=== PATIENT | male | born 1970 | race Caucasian/White ===

== ENCOUNTER 2017-09-25 20:13 | Inpatient (IN) | payer OTHER ==
[~2017-09-25] VITALS: Ht 15.2 cm; Wt 45.6 kg
[~2017-09-25 20:13] MED LIST: ASPIRIN 81M81 MG/TA2 PO; CIPRO 500MG TA500 MG PO; FLAGYL 250250 MG/TAB PO; LOPRESSOR 225 MG/TAB PO; NO HOME MEDICATIONS; NORVASC 5MG5 MG/TAB PO; ZESTORETIC 12.51 TAB PO
[2017-09-25 21:09] LABS: MEAN CELL VOLUME 102 fl (80.0-100.0); MEAN CORPUSCULAR HGB CONC 33 g/dl (33.0-37.0); MEAN PLATELET VOLUME 9.5 fl (7.4-10.4); PLATELET COUNT 441 K/mm3 (130-400); RED BLOOD COUNT 1.72 M/mm3 (4.20-5.60); REDCELL DISTRIBUTION WIDTH-CV 16.4 % (11.5-14.5)
[2017-09-25 21:19] LABS: COLLECTION METHOD CLEAN CATCH
[2017-09-25 21:21] LABS: HEMATOCRIT 17.5 % (42.0-52.0); HEMOGLOBIN 5.8 g/dl (13.5-18.0); MEAN CORPUSCULAR HEMOGLOBIN 34 pg (27.0-31.0)
[2017-09-25 21:23] LABS: ALANINE AMINOTRANSFERASE 26 U/L (21-72); ALBUMIN 3.4 gm/dL (3.5-5.0); ALCOHOL(ethanol),MEDICAL < 10 mg/dL; ALKALINE PHOSPHATASE 99 U/L (50-136); ANION GAP 14 mmol/L (7-16); AST,SGOT 29 U/L (15-37); BILIRUBIN,TOTAL 0.3 mg/dL (0.0-1.0); BLOOD UREA NITROGEN 31 mg/dL (9-20); C-REACTIVE PROTEIN 0.9 mg/dL (0.0-0.9); CALCIUM 10.5 mg/dL (8.4-10.2); CARBON DIOXIDE 29 mmol/L (22-30); CHLORIDE 91 mmol/L (98-107); CREATININE, serum 1.46 mg/dL (0.66-1.25); GLUCOSE 126 mg/dL (74-106); LIPASE 92 U/L (23-300); POTASSIUM 2.9 mmol/L (3.4-5.0); SODIUM 134 mmol/L (137-145)
[2017-09-25 21:47] LABS: HYALINE CAST >12 /lpf; MUCOUS Present /lpf; PH 5 (5-8); SQUAMOUS EPITHELIAL None Seen /hpf; URINE APPEARANCE Hazy; URINE BACTERIA Rare /hpf; URINE BILIRUBIN Negative (NEGATIVE); URINE BLOOD Negative (NEGATIVE); URINE COLOR Yellow; URINE GLUCOSE Negative (NEGATIVE); URINE KETONE Trace (NEGATIVE); URINE LEUKOCYTE ESTERASE Negative (NEGATIVE); URINE NITRATE Negative (NEGATIVE); URINE PROTEIN(semi-quant) 1+ (NEGATIVE); URINE RBC 0-2 /hpf
[2017-09-25 21:58] LABS: ANISOCYTOSIS 1+; BAND 1 % (0-10); EOSINOPHIL 3 % (0-4); HYPOCHROMIA 3+; LYMPHOCYTE 9 % (20.0-51.0); NEUTROPHILS 84 % (42.0-75.2); PLATELET ESTIMATE INCREASED (NORMAL)
[2017-09-25 22:23] LABS: HEMATOCRIT 15.3 % (42.0-52.0); HEMOGLOBIN 5.3 g/dl (13.5-18.0)
[2017-09-25 22:42] LABS: CALCIUM 9.9 mg/dL (8.4-10.2); CREATININE, serum 1.36 mg/dL (0.66-1.25)
[2017-09-25 23:06] LABS: POTASSIUM 2.8 mmol/L (3.4-5.0)
[2017-09-25 23:08] LABS: TRICYCLIC ANTIDEPRESS URINE NEGATIVE
[2017-09-25 23:46] LABS: INR 1.1 (0.8-3.0); PROTHROMBIN TIME 12.4 SECONDS (9.7-12.8)
[2017-09-25 23:50] VITALS: BP 105/47; PULSE 89; TEMP 97.5
[2017-09-26] VITALS (16 sets, daily range): BP systolic 88–106; BP diastolic 54–67; PULSE 61–82; TEMP 97.5–98.3
[2017-09-26 02:12] LABS: MAGNESIUM 1.4 mg/dL (1.6-2.3)
[2017-09-26 06:28] LABS: BASO % 0.3 % (0.0-2.0); EOS # 0.4 (0.0-0.7); EOS % 3.7 % (0-4.0); GRAN # 7.4 (1.4-6.5); GRAN % 63.8 % (42.2-75.2); LYMPH # 2.6 (1.2-3.4); MEAN CORPUSCULAR HGB CONC 33 g/dl (33.0-37.0); MEAN PLATELET VOLUME 9.5 fl (7.4-10.4); MONO # 1.1 (0.1-0.6); MONO % 9.7 % (1.7-9.3); RED BLOOD COUNT 2.36 M/mm3 (4.20-5.60); REDCELL DISTRIBUTION WIDTH-CV 18.6 % (11.5-14.5)
[2017-09-26 06:31] LABS: HEMATOCRIT 22.5 % (42.0-52.0); HEMOGLOBIN 7.5 g/dl (13.5-18.0); MEAN CELL VOLUME 95 fl (80.0-100.0); MEAN CORPUSCULAR HEMOGLOBIN 32 pg (27.0-31.0); PLATELET COUNT 327 K/mm3 (130-400)
[2017-09-26 06:44] LABS: CALCIUM 8.4 mg/dL (8.4-10.2); CREATININE, serum 1.11 mg/dL (0.66-1.25); POTASSIUM 3.8 mmol/L (3.4-5.0)
[2017-09-26 14:08] LABS: HEMATOCRIT 21.8 % (42.0-52.0); HEMOGLOBIN 7.2 g/dl (13.5-18.0)
[2017-09-26 19:52] LABS: HEMATOCRIT 23.2 % (42.0-52.0); HEMOGLOBIN 7.8 g/dl (13.5-18.0)
[2017-09-27] VITALS (8 sets, daily range): BP systolic 102–117; BP diastolic 56–68; PULSE 72–81; TEMP 98.1–99.5
[2017-09-27 01:51] LABS: HEMOGLOBIN 7.2 g/dl (13.5-18.0)
[2017-09-27 06:39] LABS: BASO # 0.1 (0.0-0.2); BASO % 0.6 % (0.0-2.0); EOS # 0.4 (0.0-0.7); EOS % 4.6 % (0-4.0); GRAN # 6.3 (1.4-6.5); GRAN % 64.8 % (42.2-75.2); LYMPH % 20.6 % (20.0-51.0); MEAN CELL VOLUME 97 fl (80.0-100.0); MEAN CORPUSCULAR HGB CONC 34 g/dl (33.0-37.0); MEAN PLATELET VOLUME 9.6 fl (7.4-10.4); MONO # 0.9 (0.1-0.6); MONO % 8.9 % (1.7-9.3); PLATELET COUNT 360 K/mm3 (130-400); RED BLOOD COUNT 2.26 M/mm3 (4.20-5.60); REDCELL DISTRIBUTION WIDTH-CV 18.9 % (11.5-14.5)
[2017-09-27 06:47] LABS: HEMATOCRIT 21.8 % (42.0-52.0); HEMOGLOBIN 7.3 g/dl (13.5-18.0); MEAN CORPUSCULAR HEMOGLOBIN 32 pg (27.0-31.0)
[2017-09-27 07:05] LABS: ALANINE AMINOTRANSFERASE 22 U/L (21-72); ALBUMIN 2.1 gm/dL (3.5-5.0); ALKALINE PHOSPHATASE 73 U/L (50-136); ANION GAP 7 mmol/L (7-16); AST,SGOT 21 U/L (15-37); BILIRUBIN,TOTAL < 0.1 mg/dL (0.0-1.0); BLOOD UREA NITROGEN 20 mg/dL (9-20); CALCIUM 6.9 mg/dL (8.4-10.2); CARBON DIOXIDE 22 mmol/L (22-30); CHLORIDE 107 mmol/L (98-107); CREATININE, serum 0.83 mg/dL (0.66-1.25); GLUCOSE 79 mg/dL (74-106); POTASSIUM 3.7 mmol/L (3.4-5.0); SODIUM 135 mmol/L (137-145); TOTAL PROTEIN 5.3 gm/dL (6.4-8.2)
[2017-09-27 07:51] LABS: HEMATOCRIT 21.8 % (42.0-52.0); HEMOGLOBIN 7.2 g/dl (13.5-18.0)
[2017-09-27 13:39] LABS: HEMATOCRIT 24.6 % (42.0-52.0); HEMOGLOBIN 8.2 g/dl (13.5-18.0)
[2017-09-27 20:24] LABS: HEMATOCRIT 23.6 % (42.0-52.0); HEMOGLOBIN 7.8 g/dl (13.5-18.0)
[2017-09-28 00:32] VITALS: BP 101/61; PULSE 77; TEMP 98.7
[2017-09-28 05:06] VITALS: BP 112/66; PULSE 80; TEMP 98.9
[2017-09-28 07:03] LABS: CREATININE, serum 0.7 mg/dL (0.66-1.25); POTASSIUM 3.5 mmol/L (3.4-5.0)
[2017-09-28 07:04] LABS: BASO # 0.1 (0.0-0.2); BASO % 0.5 % (0.0-2.0); EOS # 0.3 (0.0-0.7); EOS % 2.8 % (0-4.0); GRAN # 8.8 (1.4-6.5); GRAN % 73.1 % (42.2-75.2); LYMPH # 1.8 (1.2-3.4); LYMPH % 15.2 % (20.0-51.0); MEAN CELL VOLUME 96 fl (80.0-100.0); MEAN CORPUSCULAR HGB CONC 33 g/dl (33.0-37.0); MEAN PLATELET VOLUME 9.6 fl (7.4-10.4); MONO % 8.1 % (1.7-9.3); PLATELET COUNT 428 K/mm3 (130-400); REDCELL DISTRIBUTION WIDTH-CV 17.8 % (11.5-14.5)
[2017-09-28 07:06] LABS: HEMATOCRIT 23.1 % (42.0-52.0); HEMOGLOBIN 7.7 g/dl (13.5-18.0); MEAN CORPUSCULAR HEMOGLOBIN 32 pg (27.0-31.0)
[2017-09-28] MEDS ORDERED: FERROUS SU325 MG/TAB PO (10:10)
[2017-09-28] MEDS ORDERED: LEADER CLE17 GM/Dose PO (10:11)
[2017-09-28] MEDS ORDERED: PROTONIX 40MG T40 MG PO (10:13)
[2017-09-28 12:34] VITALS: BP 101/62; PULSE 77; TEMP 98.1; TEMP 98.9
[2017-09-28 16:48] VITALS: BP 103/65; PULSE 80; TEMP 98.2
== END 2017-09-28 18:15 | disposition home or self-care (01) | DRG 384 ==
LOC: COL.ER 20:13 → MEDICAL 22:52
PROVIDERS: Emergency Medicine; Internal Medicine; Internal Medicine Gastroenterology; Nurse Practitioner Family; Physician Assistant
PROC: 0DB68ZX Excision of Stomach, Via Natural or Artificial Opening Endoscopic, Diagnostic (ICD-10-PCS; principal; 2017-09-27 07:00)
DX: K26.7 Chronic duodenal ulcer without hemorrhage or perforation (principal); N17.9 Acute kidney failure, unspecified; K29.60 Other gastritis without bleeding; D50.0 Iron deficiency anemia secondary to blood loss (chronic); E87.6 Hypokalemia; E83.42 Hypomagnesemia; I10 Essential (primary) hypertension; F17.210 Nicotine dependence, cigarettes, uncomplicated; F10.20 Alcohol dependence, uncomplicated; Y90.0 Blood alcohol level of less than 20 mg/100 ml
CPT/HCPCS: 99223-AI; 99233-AI; 99239; A9537; C9113; J1170; J1885; J2405; J2704; J3475; J7030; P9016

== ENCOUNTER 2022-07-19 02:40 | Inpatient (IN) | payer SELFPAY ==
[2005-09-29 16:35] VITALS: BP 88/54
[2022-07-19] VITALS (797 sets, daily range): BP systolic 86–103; BP diastolic 52–67; PULSE 73–86; TEMP 98.1–98.6; O2SAT 84–100
[~2022-07-19] VITALS: Ht 167.6 cm; Wt 35.0 kg
[~2022-07-19 02:40] MED LIST changes: +FERROUS SU325 MG/TAB PO; +LEADER CLE17 GM/Dose PO; +PROTONIX 40MG T40 MG PO
[2022-07-19 03:58] LABS: BASO # 0.1 K/mm3 (0.0-0.2); BASO % 0.6 % (0.0-2.0); EOS # 0.1 K/mm3 (0.0-0.7); EOS % 0.6 % (0.0-4.0); GRAN # 9.1 K/mm3 (1.4-6.5); GRAN % 82.7 % (42.2-75.2); LYMPH # 1.1 K/mm3 (1.2-3.4); LYMPH % 9.5 % (20.0-51.0); MEAN CELL VOLUME 88 fl (80.0-100.0); MEAN CORPUSCULAR HGB CONC 36 g/dl (33.0-37.0); MONO # 0.7 K/mm3 (0.1-0.6); MONO % 6.1 % (1.7-9.3); PLATELET COUNT 216 K/mm3 (130-400); RED BLOOD COUNT 2.57 M/mm3 (4.20-5.60); REDCELL DISTRIBUTION WIDTH-CV 12.9 % (11.5-14.5)
[2022-07-19 03:59] LABS: HEMATOCRIT 22.7 % (42.0-52.0); HEMOGLOBIN 8.2 g/dl (13.5-18.0); MEAN CORPUSCULAR HEMOGLOBIN 32 pg (27-31)
[2022-07-19 04:19] LABS: ALBUMIN 2.8 gm/dL (3.5-5.0); ALKALINE PHOSPHATASE 113 U/L (40-150); ANION GAP 19 mmol/L (7-16); AST,SGOT 20 U/L (5-34); BILIRUBIN,TOTAL 0.3 mg/dL (0.2-1.2); BLOOD UREA NITROGEN 48 mg/dL (8-26); C-REACTIVE PROTEIN 9.04 mg/dL (0.00-0.50); CALCIUM 7.7 mg/dL (8.4-10.2); CARBON DIOXIDE 17 mmol/L (22-29); CHLORIDE 92 mmol/L (98-107); CREATININE, serum 3.93 mg/dL (0.72-1.25); GLUCOSE 79 mg/dL (70-99); SODIUM 128 mmol/L (136-145); TOTAL PROTEIN 8.2 gm/dL (6.2-8.1)
[2022-07-19 04:22] LABS: ERYTHROCYTE SEDIMENTATION RATE > 140 mm/hr (0-30)
[2022-07-19 04:25] LABS: ALANINE AMINOTRANSFERASE < 6 U/L (0-55)
[2022-07-19 04:26] LABS: POTASSIUM 2.4 mmol/L (3.5-4.5)
[2022-07-19 05:05] LABS: MAGNESIUM 1.3 mg/dL (1.6-2.6); PHOSPHOROUS 3.5 mg/dL (2.3-4.7)
[2022-07-19 05:37] LABS: COLLECTION METHOD CLEAN CATCH
[2022-07-19 05:41] LABS: PH 5.5 (5.0-8.5); URINE APPEARANCE Clear (CLEAR/HAZY); URINE BLOOD 3+ (NEGATIVE); URINE COLOR Yellow (YELLOW); URINE GLUCOSE Negative (NEGATIVE); URINE KETONE Negative (NEGATIVE); URINE NITRATE Negative (NEGATIVE); URINE PROTEIN(semi-quant) 1+ (NEGATIVE); URINE UROBILINOGEN 0.2 E.U/dL (0.2-1.0)
[2022-07-19 05:46] LABS: SQUAMOUS EPITHELIAL 0-2 /hpf (0-10); URINE BACTERIA Rare /hpf (NONE SEEN); URINE RBC 20-50 /hpf (0-2)
[2022-07-19 09:18] LABS: CALCIUM 6.3 mg/dL (8.4-10.2); CREATININE, serum 3.27 mg/dL (0.72-1.25)
[2022-07-19 09:20] LABS: POTASSIUM 2.8 mmol/L (3.5-4.5)
--- NOTE | 2022-07-19 14:24 | NUR ---
SW met with patient to complete intake. Patient states that he lives in [facility]. Patient states that he usually couch surfs from friends to friend. SW offered resources for shelters in the community and community housing. Patient stated that he does not wish to obtain community and states he is fine doing what he is doing for housing. Point of contact is friend Adrian Esposito [phone] patient states that he previously has not had any use for a walker or a cane, usually gets around well. Patient provides that he uses community agencies if he needs to go to the doctor and does not have a PCP and did not wish to obtain resources to obtain a PCP. Patient states that he utilizes [facility] for pharmacy needs. No DPOA/HC in place and patient did not wish to appoint anyone at this time. DC plan unknown. SW will continue to follow. DC plan: unknown
[2022-07-19 14:42] LABS: CREATININE, serum 3.09 mg/dL (0.72-1.25)
[2022-07-19 14:46] LABS: FRACTIONAL EXCRETION OF NA+ 2.9 %
--- NOTE | 2022-07-19 20:00 | NUR ---
SHIFT REPORT RECEIVED. PT IS A&O x4. PT HAS NS RUNNING AT 75ML/HR. PT IS ON ROOM AIR WITH CLEAR LUNG SOUNDS. PT HAS TEMP HARTLEY CATHETER WITH CLEAR YELLOW URINE OUTPUT. PT HAS BEAR HUGGER THAT WAS ADJUSTED BASED ON TEMP VIA HARTLEY TO KEEP PT FROM BECOMING AFEBRILE/HYPOTHERMIC. PT SKIN: LT FOOT AND ANKLE EDEMA +3 AND PURPLE DISCOLORATION WITH ULCER TO INNER ANKLE AND ULCER ON BUNION TO GREAT TOE - PURPLE DISCOLORATION AREA HAS BEEN MARKED BY ORTHO TO MONITOR PROGRESSION OF DISCOLORATION - PEDAL PULSES PRESENT TO LT FOOT BUT EXTREMELY PAINFUL TO THE TOUCH, RT FOOT EDEMA +2 AND MOIZ DISCOLORATION WITH ULCER MID DORSAL AND PEDAL PULSES PRESENT BUT PAINFUL TO THE TOUCH, ULCER TO RT ELBOW, GLUETAL SKIN IS THICKENED WITH DARK DISCOLORATION THROUGH OUT WITH ULCER MID GLUETAL FOLD THAT PT REPORTS IS "DUE TO AN OLD CYST". PT EXPIERENCES EXTREME PAIN WITH ANY TOUCHING OF B/L FEET. MEPILEX PLACED ON FEET ULCERS AND HEEL PROTECTOR PILLOWS APPLIED WHICH DID HELP TO PROVIDE PT WITH PAIN RELIEF ALONG WITH PO TYLENOL. PT HAD MULTIPLE BOUTS OF DIARRHEA THROUGH OUT DAY SHIFT THAT CONTIUNED THROUGH OUT THE EVENING. ORDER FOR IMODIUM OBTAINED FROM HOSPITALIST AND 2 DOSES ADMINISTERED (SEE EMAR) BEFORE RELIEF AND PT WAS ABLE TO SLEEP REST OF SHIFT. PT WAS NPO AT 0000 PER PROVIDER ORDER. PT WITH CALL LIGHT AT BEDSIDE.
[2022-07-20] VITALS (616 sets, daily range): BP systolic 88–120; BP diastolic 54–92; PULSE 55–73; TEMP 97–99.6; O2SAT 79–100
[2022-07-20 07:09] LABS: BASO % 0.5 % (0.0-2.0); EOS # 0.1 K/mm3 (0.0-0.7); EOS % 1.6 % (0.0-4.0); GRAN # 5.5 K/mm3 (1.4-6.5); GRAN % 85.2 % (42.2-75.2); LYMPH # 0.5 K/mm3 (1.2-3.4); LYMPH % 8.4 % (20.0-51.0); MEAN CELL VOLUME 90 fl (80.0-100.0); MEAN CORPUSCULAR HGB CONC 35 g/dl (33.0-37.0); MEAN PLATELET VOLUME 10.6 fl (7.4-10.4); MONO # 0.3 K/mm3 (0.1-0.6); PLATELET COUNT 161 K/mm3 (130-400); RED BLOOD COUNT 2.26 M/mm3 (4.20-5.60); REDCELL DISTRIBUTION WIDTH-CV 13.1 % (11.5-14.5)
[2022-07-20 07:19] LABS: HEMATOCRIT 20.4 % (42.0-52.0); HEMOGLOBIN 7.1 g/dl (13.5-18.0); MEAN CORPUSCULAR HEMOGLOBIN 31 pg (27-31)
[2022-07-20 07:27] LABS: ALBUMIN 1.9 gm/dL (3.5-5.0); CALCIUM 6.9 mg/dL (8.4-10.2); CREATININE, serum 2.38 mg/dL (0.72-1.25); MAGNESIUM 1.4 mg/dL (1.6-2.6); PHOSPHOROUS 2.6 mg/dL (2.3-4.7); POTASSIUM 3.1 mmol/L (3.5-4.5); TOTAL PROTEIN 5.3 gm/dL (6.2-8.1)
--- NOTE | 2022-07-20 08:54 | NUR ---
Vancomycin Follow-up Pharmacy Note Current regimen: DOSING BY LEVELS, ANTONIO Vancomycin trough: 14 Adjustments: VANCOMYCIN 1 G ONCE ON 07/20, RDM TROUGH 07/21.
--- NOTE | 2022-07-20 11:19 | NUR ---
Report received from JEREMI Iniguez; patient currently resting in bed, NS is running through his peripheral line. Patient has Acosta catheter and no other lines or tubes in place at this time. Patient's vital signs are within normal limits.
[2022-07-20] MEDS ORDERED: ADVIL PM 38 MG-1 TAB PO (14:10)
--- NOTE | 2022-07-20 14:11 | NUR ---
Pt to room 308 on the medical floor. Pt oriented to room and call light system. A&Ox4. Telemetry remains on. LCTA. NS infusing @75mL/hr and Zosyn infusing @25mL/hr in R forearm. BSx4. Acosta catheter in place. BLE discolored with line marked. x2 Dressings noted on LLE and x1 mepilex dressing on RLE noted. Denies c/o pain at this time. Warmer in place. Call light within reach.
--- NOTE | 2022-07-20 14:14 | NUR ---
Reported off to JEREMI Starks; patient taken up to room 308 with all his belongings; patient was taken with the warmer. Patient was stable and vital signs were within normal limits upon transfer.
[2022-07-21 04:14] VITALS: BP 105/59; PULSE 72; TEMP 98.6
--- NOTE | 2022-07-21 07:24 | NUR ---
PT IN ROOM 348 TRANSFERED FROM MEDICAL DURING STAGE ELECTRICIAN HELPER. PT SLEEPING DURING BEDSIDE SHIFT REPORT.
[2022-07-21 07:37] VITALS: BP 109/65; PULSE 70; TEMP 98
[2022-07-21 08:47] LABS: BASO # 0.1 K/mm3 (0.0-0.2); BASO % 0.9 % (0.0-2.0); EOS # 0.1 K/mm3 (0.0-0.7); EOS % 1.8 % (0.0-4.0); GRAN # 6.4 K/mm3 (1.4-6.5); GRAN % 82.4 % (42.2-75.2); LYMPH # 0.9 K/mm3 (1.2-3.4); LYMPH % 10.9 % (20.0-51.0); MEAN CELL VOLUME 93 fl (80.0-100.0); MEAN CORPUSCULAR HGB CONC 34 g/dl (33.0-37.0); MONO # 0.3 K/mm3 (0.1-0.6); MONO % 3.6 % (1.7-9.3); PLATELET COUNT 168 K/mm3 (130-400); RED BLOOD COUNT 2.37 M/mm3 (4.20-5.60); REDCELL DISTRIBUTION WIDTH-CV 13.5 % (11.5-14.5)
[2022-07-21 08:49] LABS: HEMATOCRIT 22.1 % (42.0-52.0); HEMOGLOBIN 7.4 g/dl (13.5-18.0); MEAN CORPUSCULAR HEMOGLOBIN 31 pg (27-31)
[2022-07-21 08:53] LABS: CALCIUM 6.8 mg/dL (8.4-10.2); CREATININE, serum 1.67 mg/dL (0.72-1.25); POTASSIUM 3.5 mmol/L (3.5-4.5)
--- NOTE | 2022-07-21 09:29 | NUR ---
PT RESTING IN BED. PT USING BEDPAN. LOOSE INCONTINENT STOOLS REPORTED. PT CLEANED AND NEW GOWN PROVIDED. AM MEDS GIVEN PER ORDERS. PT EATING AND DRINKING WITH NO N/V. IV TO RAC, FLUIDS RUNNING PER ORDERS.
--- NOTE | 2022-07-21 09:30 | NUR ---
Initial visit; Patient thanked Steeler for visiting him. He said he is doing "ok". Steeler wished him well and offered God's blessings.
[2022-07-21 12:08] VITALS: BP 106/64; PULSE 80; TEMP 98
--- NOTE | 2022-07-21 14:30 | NUR ---
Room Clerk spoke with PT about discharge planning. PT recommends SNF, however patient is self pay and has no placement options at this time. Patient not a candidate for IPR. SW advised that at this time, home is the plan for patient. SW also discussed this with Hospitalist. Patient is refusing amputation which is recommended. Hospitalist is hesitant to send patient out with a PICC line. SW contacted [facility], [facility] and they have no availability in their handicap accessible rooms at this time. Discharge Plan: Return to prior living arrangement
[2022-07-21 15:55] VITALS: BP 97/60; PULSE 83; TEMP 98.4
[2022-07-21 19:36] VITALS: BP 117/66; PULSE 93; TEMP 99.1
--- NOTE | 2022-07-21 21:50 | NUR ---
pt resting in bed. assessment complete. vss and tele in place. ble are gangrene and sensitive to touch. boots to elsie feet to relieve pressure. pt incontinent of stool, barrier cream applied. barrios to dd w dark yellow urine. advil pm resumed to help pt sleep. no needs at this time. call light in reach.
[2022-07-21 23:34] VITALS: BP 103/48; PULSE 90; TEMP 99.7
[2022-07-22] VITALS (12 sets, daily range): BP systolic 86–120; BP diastolic 45–68; PULSE 72–93; TEMP 97.7–99
--- NOTE | 2022-07-22 05:53 | NUR ---
pt slept through the night. incontinent of stool this morning, pt cleaned and barrier cream applied. call light in reach.
[2022-07-22 07:31] LABS: MEAN CELL VOLUME 92 fl (80.0-100.0); MEAN CORPUSCULAR HGB CONC 34 g/dl (33.0-37.0); PLATELET COUNT 185 K/mm3 (130-400); RED BLOOD COUNT 2.16 M/mm3 (4.20-5.60); REDCELL DISTRIBUTION WIDTH-CV 13.9 % (11.5-14.5)
[2022-07-22 07:41] LABS: CALCIUM 6.7 mg/dL (8.4-10.2); CREATININE, serum 1.5 mg/dL (0.72-1.25); POTASSIUM 4.6 mmol/L (3.5-4.5)
[2022-07-22 07:57] LABS: HEMATOCRIT 19.8 % (42.0-52.0); HEMOGLOBIN 6.8 g/dl (13.5-18.0); MEAN CORPUSCULAR HEMOGLOBIN 31 pg (27-31)
--- NOTE | 2022-07-22 11:56 | NUR ---
PT HARTLEY IS FOR ACCURATE I/O R/T ANTONIO.
--- NOTE | 2022-07-22 13:09 | NUR ---
Learning And Development Administrator consulted Kelly Financial Counselor who advised she provided patient with a financial assistance application. Kelly also advised that patient will not qualify for Medicaid. SW met with patient to review discharge plan. Patient isn't entirely sure who he will be staying with at time of discharge but is working on it. Patient stated he has been couch surfing for quite some time. SW offered assistance with obtaining a walker, but patient was not interested at this time.
--- NOTE | 2022-07-22 16:34 | NUR ---
Patient scheduled telehealth visit with Dr. Irving, Infectious Disease. Pt consents to visit. Equipment set up, audio and video connections established. Visit conducted by . No technical concerns or issues.
[2022-07-22 20:22] LABS: HEMATOCRIT 25.2 % (42.0-52.0); HEMOGLOBIN 8.9 g/dl (13.5-18.0)
--- NOTE | 2022-07-22 22:33 | NUR ---
pt resting in bed. melatonin ordered to help pt sleep. vss and tele in place. barrios to dd w dark urine output. hgb increased to 8.9 after unit of prbc. call light in reach. no needs at this time.
--- NOTE | 2022-07-22 23:50 | NUR ---
pt incontinent of stool, imodium given and barrier cream applied.
[2022-07-23] VITALS (8 sets, daily range): BP systolic 82–101; BP diastolic 40–73; PULSE 74–97; TEMP 98.4–99.7
[2022-07-23 06:33] LABS: BASO # 0.1 K/mm3 (0.0-0.2); BASO % 0.7 % (0.0-2.0); EOS # 0.4 K/mm3 (0.0-0.7); EOS % 3.4 % (0.0-4.0); GRAN # 10.3 K/mm3 (1.4-6.5); GRAN % 80.8 % (42.2-75.2); HEMATOCRIT 26.6 % (42.0-52.0); HEMOGLOBIN 9.3 g/dl (13.5-18.0); LYMPH # 1.2 K/mm3 (1.2-3.4); LYMPH % 9.2 % (20.0-51.0); MEAN CELL VOLUME 89 fl (80.0-100.0); MEAN CORPUSCULAR HEMOGLOBIN 31 pg (27-31); MEAN CORPUSCULAR HGB CONC 35 g/dl (33.0-37.0); MEAN PLATELET VOLUME 10.8 fl (7.4-10.4); MONO # 0.7 K/mm3 (0.1-0.6); MONO % 5.4 % (1.7-9.3); PLATELET COUNT 176 K/mm3 (130-400); REDCELL DISTRIBUTION WIDTH-CV 14.5 % (11.5-14.5)
[2022-07-23 06:51] LABS: CALCIUM 6.8 mg/dL (8.4-10.2); CREATININE, serum 1.4 mg/dL (0.72-1.25); POTASSIUM 4.6 mmol/L (3.5-4.5)
--- NOTE | 2022-07-23 07:19 | NUR ---
Received shift report from the night nurse Abida BLOOD
--- NOTE | 2022-07-23 07:25 | NUR ---
Patient has blood glucose level of 64. Patient is asymptomatic and sitting up eating breakfast. HELIO Mejia notified and ordered to recheck glucose level after breakfast.
--- NOTE | 2022-07-23 09:56 | NUR ---
0954 Assessment complete (see shift assessment). Pt denies pain at this time. Discussed plan of care, pt agreeable. All questions answered. Call light within reach. Will continue to monitor.
--- NOTE | 2022-07-23 11:22 | NUR ---
1100 Gave pt bed bath, only allowed legs bilaterally to be cleaned and barrios care to be done.
--- NOTE | 2022-07-23 12:10 | NUR ---
Patient sitting up in bed alert and oriented. Dressing at BLE dry and intact. Acosta catheter draining tea colored urine in the bag. Patient denies needs at this time. Call payne within reach.
--- NOTE | 2022-07-23 12:49 | NUR ---
0645 Report received from JEREMI Tai. This student nurse discussed plan of care and care coordination [facility], JEREMI Garay.
--- NOTE | 2022-07-23 13:16 | NUR ---
0930 Pt wants bedpan under him at all times. Continue to assess the patients bedpan and change it as it needs changed. Will continue to montior bed rao and patients coccyx.
--- NOTE | 2022-07-23 15:30 | NUR ---
PCT NOTIFIED CHARGE NURSE THAT PATIENT WAS HYPOTENSIVE IN THE 70-80'S SYSTOLIC. HOB LOWERED, PATIENT NOW IN [place]. VITALS MACHINE INPLACE. BEDSIDE NURSE NOTIFIED AND TOLD TO CALL HOSPITALIST, SEE ORDERS FOR FLUID BOLUS. PATIENT REPORTS FEELING ASYMPTOMATIC. WILL MONITOR.
--- NOTE | 2022-07-23 16:21 | NUR ---
Patient has low blood pressure o7 78/41, Patient asymptomatic and states he's feeling well. HELIO Mejia notified and ordered to infuse LR bolus of 500mm/hr. LR 500ml/hr bolus initiated at 1620. Will continue to monitor patient.
--- NOTE | 2022-07-23 19:16 | NUR ---
Sushma was notified of patient's blood pressure of 91/56 after LR bolus.
--- NOTE | 2022-07-23 19:19 | NUR ---
Patient barrios d/c at 1855. Emptied 350cc of dark tea urine from the barrios.
--- NOTE | 2022-07-23 22:01 | NUR ---
pt resting in bed. bp improved some after LR bolus. pt asymptomatic. meds given and assessment complete. zosyn infusing into right ac. dressings to ble are cdi. fall precautions in place. pt denies needs at this time. call light in reach.
--- NOTE | 2022-07-24 00:43 | NUR ---
iv in right ac came out when pt moved his arm. new iv started in the right hand without difficulty.
[2022-07-24 03:44] VITALS: BP 90/52; PULSE 82; TEMP 98.4
--- NOTE | 2022-07-24 06:20 | NUR ---
pt was incontinent of bowel this morning. complete bed change and hygiene performed. pt able to urinate after discontinuing barrios. no needs at this time. call light in reach.
[2022-07-24 07:05] VITALS: BP 97/69; PULSE 80; TEMP 98.2
--- NOTE | 2022-07-24 07:05 | NUR ---
0705 Assessment completed (see shift assessment). Pt denies pain at this time. Discussed plan of care, pt agreeable. All questions answered. Call light within reach. Will continue to monitor.
[2022-07-24 07:07] LABS: BASO # 0.1 K/mm3 (0.0-0.2); BASO % 0.7 % (0.0-2.0); EOS # 0.5 K/mm3 (0.0-0.7); EOS % 3.8 % (0.0-4.0); GRAN % 77.1 % (42.2-75.2); LYMPH # 1.5 K/mm3 (1.2-3.4); LYMPH % 11.6 % (20.0-51.0); MEAN CELL VOLUME 89 fl (80.0-100.0); MEAN CORPUSCULAR HGB CONC 35 g/dl (33.0-37.0); MEAN PLATELET VOLUME 10.6 fl (7.4-10.4); MONO # 0.8 K/mm3 (0.1-0.6); MONO % 6.1 % (1.7-9.3); PLATELET COUNT 211 K/mm3 (130-400); RED BLOOD COUNT 2.97 M/mm3 (4.20-5.60)
[2022-07-24 07:12] LABS: HEMATOCRIT 26.5 % (42.0-52.0); HEMOGLOBIN 9.2 g/dl (13.5-18.0); MEAN CORPUSCULAR HEMOGLOBIN 31 pg (27-31)
[2022-07-24 07:20] LABS: CALCIUM 6.8 mg/dL (8.4-10.2); CREATININE, serum 1.36 mg/dL (0.72-1.25); POTASSIUM 4.7 mmol/L (3.5-4.5)
--- NOTE | 2022-07-24 07:32 | NUR ---
0640 Report received from Abida BLOOD at this time. This [employer] student nurse discussed plan of care and coordination of care with primary [facility] nurse, Romeo BLOOD.
--- NOTE | 2022-07-24 08:08 | NUR ---
0800 Asked pt if bed bath could be given, pt denied wanting a bed bath at this time. Pt stated "I'm trying to get my bowels and shower back into a routine". I asked the pt if we could try showering later, pt stated "maybe". Will follow up with intervention.
[2022-07-24] MEDS ORDERED: PROTONIX 40MG T40 MG PO (08:42)
[2022-07-24] MEDS ORDERED: FERROUS SU325 MG/TAB PO (08:43)
[2022-07-24 11:35] VITALS: BP 92/58; PULSE 81; TEMP 98.6
--- NOTE | 2022-07-24 14:01 | NUR ---
Demolition Engineer attended clinical rounds with the team and patient is ready for discharge today. Patient stated he does not feel like he can go today as he has not had enough time to make phone calls to people to see who he can stay with. SW encouraged patient to start working on this and patient stated it's been difficult due to how many visits from staff he gets a day. SW again spoke with patient about a walker and he declined stating he works down in [email or web address] so a walker would not work for him. KATT also advised patient that she could assist with transportation at discharge once he knows where he is going. Later on, KATT was notified by Hospitalist that per Nephrology they will be keeping patient another day.
[2022-07-24 15:27] VITALS: BP 91/63; PULSE 79; TEMP 99.2
[2022-07-24 19:37] VITALS: BP 94/56; PULSE 86; TEMP 98.2
--- NOTE | 2022-07-24 21:00 | NUR ---
PT IN BED, IS ALERT AND ORIENTED X4. HAS NO IV SITE BUT REMAINS ON TELEMETRY. TAKING PO MEDS AND ASKING FOR TYLENOL AND MELATONIN AT 2200. HAS DRSG'S TO BOTH FEET, DRY GANGRENE APPEARING TOES. WEARING HEEL PROTECTORS. PT REPORTS PAIN WITH AMBULATION, ESPECIALLY LEFT FOOT. PT COCCYX IS STAGE 1, FIRM SKIN NOTED. PT INC OF LOOSE STOOL. VOIDING PER URINAL, YELLOW URINE. DENIES NEEDS AT THIS TIME.
[2022-07-25 00:13] VITALS: BP 86/42; PULSE 86; TEMP 99
[2022-07-25 04:10] VITALS: BP 86/42; PULSE 79; TEMP 98.7
[2022-07-25 06:27] LABS: BASO # 0.1 K/mm3 (0.0-0.2); BASO % 0.9 % (0.0-2.0); EOS # 0.5 K/mm3 (0.0-0.7); EOS % 4.1 % (0.0-4.0); GRAN # 8.2 K/mm3 (1.4-6.5); GRAN % 71.7 % (42.2-75.2); LYMPH # 1.6 K/mm3 (1.2-3.4); LYMPH % 14.2 % (20.0-51.0); MEAN CELL VOLUME 90 fl (80.0-100.0); MEAN CORPUSCULAR HGB CONC 35 g/dl (33.0-37.0); MEAN PLATELET VOLUME 10.5 fl (7.4-10.4); MONO # 0.9 K/mm3 (0.1-0.6); MONO % 8.2 % (1.7-9.3); PLATELET COUNT 221 K/mm3 (130-400); RED BLOOD COUNT 2.91 M/mm3 (4.20-5.60); REDCELL DISTRIBUTION WIDTH-CV 15.2 % (11.5-14.5)
[2022-07-25 06:29] LABS: HEMATOCRIT 26.1 % (42.0-52.0); MEAN CORPUSCULAR HEMOGLOBIN 31 pg (27-31)
[2022-07-25 06:51] LABS: CALCIUM 6.8 mg/dL (8.4-10.2); CREATININE, serum 1.32 mg/dL (0.72-1.25); POTASSIUM 4.4 mmol/L (3.5-4.5)
[2022-07-25 07:43] VITALS: BP 94/52; PULSE 78; TEMP 98.1
--- NOTE | 2022-07-25 08:02 | NUR ---
Patient resting in bed. Called out due to incontient stool. Pericares provided with fresh linens. Immodium Prn given. Patient blood glucose low, Breakfast orders & juice provided with am medications. Patient denies symptoms of low blood sugar. Dressing intact with heel protectors to BLE. Will monitor.
[2022-07-25 11:25] VITALS: BP 89/52; PULSE 77; TEMP 98.5
[2022-07-25 15:20] VITALS: BP 103/75; PULSE 83; TEMP 98.9
--- NOTE | 2022-07-25 19:26 | NUR ---
Patient sitting up in bed eating his dinner. Prior to dinner feet dressing changed, replaced dressing that patient had in place. Pain to his left kacie where sore noted to be the largest open area. Tylenol Prn given prior to dressing change for the pain. I did speak to and he was worried about his social enviroment for discharge. report to linda
[2022-07-25 20:42] VITALS: BP 103/55; PULSE 83; TEMP 98.9
--- NOTE | 2022-07-25 22:00 | NUR ---
PT IN BED. READY FOR HS MEDS. MELATONIN AND TYLENOL GIVEN PER HIS REQUEST. HAS NO IV SITE, REMAINS ON TELEMETRY. JEREL NAJERA AWARE. DRSG'S TO FEET CHANGED BY DAY NURSE TODAY. CURRENTLY DRSG'S D/I WITH HEEL PROTECTORS ON. TURNS TO RT SIDE ON OWN. COCCYX REMAINS REDDENED AND TISSUE IS HARD. VOIDING PER URINAL.
[2022-07-26 00:16] VITALS: BP 96/56; PULSE 85; TEMP 98.2
--- NOTE | 2022-07-26 04:25 | NUR ---
PT STANDING AT BEDSIDE, HAD INCONTINENT STOOL IN BED AND ON FLOOR TO BATHROOM. PT ALSO URINATED ON FLOOR IN BATHROOM. LINENS CHANGED AND NEVA CARES PROVIDED. NEW GOWN AND CHUX PROVIDED. ASSISTED BACK TO BED. CHANGED RT HEEL PROTECTOR D/T STOOL. PT ASKS FOR ANOTHER MELATONIN, DISCUSSED TIME FOR SLEEPING MEDS. ASKS FOR ONE TYLENOL 500MG AND IMMODIUM, GIVEN AT THIS TIME.
[2022-07-26 04:32] VITALS: BP 100/49; PULSE 73; TEMP 99.5
[2022-07-26 06:42] LABS: BASO # 0.1 K/mm3 (0.0-0.2); BASO % 0.8 % (0.0-2.0); EOS # 0.4 K/mm3 (0.0-0.7); EOS % 4.2 % (0.0-4.0); GRAN # 6.1 K/mm3 (1.4-6.5); GRAN % 65.9 % (42.2-75.2); LYMPH # 1.8 K/mm3 (1.2-3.4); LYMPH % 18.9 % (20.0-51.0); MEAN CELL VOLUME 94 fl (80.0-100.0); MEAN CORPUSCULAR HGB CONC 33 g/dl (33.0-37.0); MEAN PLATELET VOLUME 10.4 fl (7.4-10.4); MONO # 0.9 K/mm3 (0.1-0.6); MONO % 9.6 % (1.7-9.3); PLATELET COUNT 222 K/mm3 (130-400); RED BLOOD COUNT 2.74 M/mm3 (4.20-5.60); REDCELL DISTRIBUTION WIDTH-CV 15.8 % (11.5-14.5)
[2022-07-26 06:44] LABS: HEMATOCRIT 25.7 % (42.0-52.0); HEMOGLOBIN 8.4 g/dl (13.5-18.0); MEAN CORPUSCULAR HEMOGLOBIN 31 pg (27-31)
[2022-07-26 06:48] LABS: CALCIUM 6.7 mg/dL (8.4-10.2); CREATININE, serum 1.35 mg/dL (0.72-1.25); POTASSIUM 4.3 mmol/L (3.5-4.5)
[2022-07-26 07:34] VITALS: BP 118/77; PULSE 72; TEMP 98.8
[2022-07-26 11:14] VITALS: BP 108/58; PULSE 78; TEMP 98.1
--- NOTE | 2022-07-26 11:19 | NUR ---
PATIENT IS LAYING IN BED WITH LIGHT OUT WATCHING TV. DENIES PAIN,NEEDS OR CONCERNS AT THIS TIME. PATIENT HAS CALL LIGHT WITHIN REACH AND ENCOURAGED TO CALL WITH NEEDS. PATIENT STATES UNDERSTANDING.
--- NOTE | 2022-07-26 13:08 | NUR ---
Network Technician rounds: Patient was watching TV, but accepted a visit. His Parents live overseas; his sister lives in [place]; he has no family locally. 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 He was hungry and hoping that his meal would arrive soon. A nurse brought him some medications. He was worried that the medications would make him nauseous since he had not eaten. Patient declined prayer.
--- NOTE | 2022-07-26 15:15 | NUR ---
0805 - REPORT RECEIVED FROM JEREMI MENSAH IN EMERGENCY DEPARTMENT. 0823 - PATIENT ARRIVED TO FLOOR VIA WHEELCHAIR. PATIENT VITALS WNL. PATIENT HAS NO COMPLIANTS OF PAIN. PATIENT ORIENTED TO ROOM, PT ASSESSMENT COMPLETED AT THIS TIME. PATIENT EDUCAITON GIVEN ON WHAT TO EXPECT BEFORE SURGERY AND AFTER. PATIENT GIVEN CALL LIGHT AND ENCOURAGED TO CALL WITH NEEDS OR CONCERNS. PATIENT STATES UNDERSTANDING. 1047 - PATIENT LEFT SURGICAL FLOOR AT THIS TIME FOR PROCEDURE. 1220 - PATIENT ARRIVED BACK TO FLOOR VIA MEDICAL BED AT THIS TIME. PATIENT VITALS WNL. PATIENT IS ON 3LNC. PATIENT DENIES PAIN AT THIS TIME. PATIENT REORIENTED TO FLOOR AND ROOM. PATIENT EDUCATION GIVEN ON WHAT TO EXPECT IN REGARDS TO DIET AND MEDICATIONS. PATIENT STATES UNDERSTANDING AND REPORTS NO QUESTIONS. PATIENT GIVEN CALL LIGHT AND ENCOURAGED TO CALL WITH PAIN, NEEDS OR CONCERNS. PATIENT STATES UNDERSTANDING.
[2022-07-26 15:53] VITALS: BP 126/90; PULSE 80; TEMP 98.6
--- NOTE | 2022-07-26 16:26 | NUR ---
PATIENT FOUND IN BATHROOM WITH HEEL PROTECTORS STILL ON SITTING ON COMMODE. PATIENT ATTEMPTED TO GET OFF COMMODE AND THIS NURSE AND ANAYELI PCT ADVISED PT TO SIT DOWN SO THE HEEL PROTECTORS COULD BE REMOVED. PATIENT REFUSED TO USE WALKER TO AMBULATE TO BED. PATIENT REFUSED TO TURN AROUND AND SIT ON BED AND LUNGED HIMSELF ONTO THE BED SIDE WAYS. THIS PROVIDED EDUCATION ON FALLS, USING CALL LIGHT AND BED ALARMS BEING SET. PATIENT UNHAPPY WITH NURSE ABOUT BED ALARM. THIS NURSE ADVISED PATIENT WHEN HE COULD DEMONSTRATE CONSISTENT USE OF CALL LIGHT THE SITUATION COULD BE REASSESSED.
[2022-07-26 18:43] LABS: HEMATOCRIT 25.7 % (42.0-52.0); HEMOGLOBIN 8.6 g/dl (13.5-18.0)
[2022-07-26 20:01] VITALS: BP 115/59; PULSE 94; TEMP 99.1
[2022-07-27 00:25] VITALS: BP 110/58; PULSE 80; TEMP 98.8
[2022-07-27 04:31] VITALS: BP 123/66; PULSE 80; TEMP 99.1
[2022-07-27 06:40] LABS: MEAN CELL VOLUME 96 fl (80.0-100.0); MEAN CORPUSCULAR HGB CONC 32 g/dl (33.0-37.0); MEAN PLATELET VOLUME 10.1 fl (7.4-10.4); PLATELET COUNT 258 K/mm3 (130-400); RED BLOOD COUNT 2.75 M/mm3 (4.20-5.60); REDCELL DISTRIBUTION WIDTH-CV 16.2 % (11.5-14.5)
[2022-07-27 06:44] LABS: HEMATOCRIT 26.4 % (42.0-52.0); HEMOGLOBIN 8.5 g/dl (13.5-18.0); MEAN CORPUSCULAR HEMOGLOBIN 31 pg (27-31)
[2022-07-27 06:55] LABS: CALCIUM 6.9 mg/dL (8.4-10.2); CREATININE, serum 1.09 mg/dL (0.72-1.25); POTASSIUM 4.5 mmol/L (3.5-4.5)
[2022-07-27 07:04] LABS: ANISOCYTOSIS 1+; EOSINOPHIL 2 % (0-4); HYPOCHROMIA 1+; LYMPHOCYTE 28 % (20.0-51.0); NEUTROPHILS 63 % (42.0-75.2); PLATELET ESTIMATE NORMAL (NORMAL)
[2022-07-27 07:06] LABS: TARGET CELLS 1+
[2022-07-27 07:42] VITALS: BP 139/88; PULSE 81; TEMP 99.1
--- NOTE | 2022-07-27 09:01 | NUR ---
Patient resting in bed. Bev [facility]. Hospitalist & social working on discharge planning. Will monitor
[2022-07-27 12:07] VITALS: BP 116/70; PULSE 79; TEMP 98.7
[2022-07-27] MEDS ORDERED: AMOXICILLIN 8751 TAB PO (13:05)
--- NOTE | 2022-07-27 14:22 | NUR ---
Patient ready for discharge, orders obtained. He is trying to get a ride. Feet dressings changed. feet cleaned. lotions to bottom of feet, skin flaking. Social work assisted with medication vouchers. Discharge paperwork reviewed with med list & all instructions.
--- NOTE | 2022-07-27 16:15 | NUR ---
Midlevel Provider met with patient to discuss discharge planning. Patient advised he has been in contact with a friend that will pick him up around 1700. SW completed a medication voucher for patient and sent it to [facility]. Patient advised he would ask his friend to take him by [facility] either today or tomorrow. KATT made patient an appointment at the [facility] and had unit manager include it in discharge orders.
--- NOTE | 2022-07-27 17:56 | NUR ---
Patient dressed independently. Took his meal tray home to take for eating later. Tylenol and immodium prn prior to discharge. Patietn given briefs to wear for his incontinence. a friend picked him up at pa.
== END 2022-07-27 17:57 | disposition home or self-care (01) | DRG 872 ==
LOC: COL.ER 02:40 → ICU 04:46 → SURG 04:46 → ICU 04:46 → EDBEDREQSVC 05:19 → EDBEDREQ 05:19 → MEDICAL 07-20 13:50 → SURG 07-20 21:38
PROVIDERS: Emergency Medicine; Physician Assistant; Registered Nurse; Student in an Organized Health Care Education/Training Program; ADMIT Internal Medicine
PROC: 30233N1 Transfusion of Nonautologous Red Blood Cells into Peripheral Vein, Percutaneous Approach (ICD-10-PCS; principal; 2022-07-22)
DX: A41.9 Sepsis, unspecified organism (principal); I96 Gangrene, not elsewhere classified; E87.1 Hypo-osmolality and hyponatremia; R64 Cachexia; N17.9 Acute kidney failure, unspecified; L03.116 Cellulitis of left lower limb; L03.115 Cellulitis of right lower limb; S91.302A Unspecified open wound, left foot, initial encounter; S91.301A Unspecified open wound, right foot, initial encounter; K26.9 Duodenal ulcer, unspecified as acute or chronic, without hemorrhage or perforation; I95.9 Hypotension, unspecified; E83.42 Hypomagnesemia; M85.872 Other specified disorders of bone density and structure, left ankle and foot; I10 Essential (primary) hypertension; D63.8 Anemia in other chronic diseases classified elsewhere; E83.51 Hypocalcemia; E16.2 Hypoglycemia, unspecified; E87.6 Hypokalemia; R74.01 Elevation of levels of liver transaminase levels; F17.210 Nicotine dependence, cigarettes, uncomplicated; F10.20 Alcohol dependence, uncomplicated; Z79.1 Long term (current) use of non-steroidal anti-inflammatories (NSAID)
CPT/HCPCS: G0378; J1644; J2270; J2405; J2543; J3010; J3370; J3475; J3480; J7030; J7050; J7120; P9016

== ENCOUNTER 2022-08-02 03:15 | Inpatient (IN) | payer SELFPAY ==
[~2022-08-02] VITALS: Ht 170.2 cm; Wt 62.3 kg
[~2022-08-02 03:15] MED LIST changes: +ADVIL PM 38 MG-1 TAB PO; +AMOXICILLIN 8751 TAB PO
[2022-08-02 04:03] LABS: BASO # 0.1 K/mm3 (0.0-0.2); BASO % 0.9 % (0.0-2.0); EOS # 0.5 K/mm3 (0.0-0.7); EOS % 4.2 % (0.0-4.0); GRAN # 6.7 K/mm3 (1.4-6.5); GRAN % 59.1 % (42.2-75.2); LYMPH # 2.6 K/mm3 (1.2-3.4); MEAN CELL VOLUME 96 fl (80.0-100.0); MEAN CORPUSCULAR HGB CONC 32 g/dl (33.0-37.0); MEAN PLATELET VOLUME 9.8 fl (7.4-10.4); MONO # 1.4 K/mm3 (0.1-0.6); MONO % 12.2 % (1.7-9.3); PLATELET COUNT 433 K/mm3 (130-400); RED BLOOD COUNT 2.51 M/mm3 (4.20-5.60); REDCELL DISTRIBUTION WIDTH-CV 15.3 % (11.5-14.5)
[2022-08-02 04:17] LABS: HEMATOCRIT 24.2 % (42.0-52.0); HEMOGLOBIN 7.8 g/dl (13.5-18.0); MEAN CORPUSCULAR HEMOGLOBIN 31 pg (27-31)
[2022-08-02 04:23] LABS: ALBUMIN 2.3 gm/dL (3.5-5.0); BILIRUBIN,TOTAL 0.8 mg/dL (0.2-1.2); CREATININE, serum 1.04 mg/dL (0.72-1.25); TOTAL PROTEIN 7.7 gm/dL (6.2-8.1)
[2022-08-02 05:33] VITALS: BP 116/84; PULSE 78; TEMP 97.3
[2022-08-02 07:20] VITALS: BP 115/70; PULSE 82; TEMP 97.6
--- NOTE | 2022-08-02 09:00 | NUR ---
Assessment complete. A&Ox3. Denies nausea/shortness of breath. VS stable. Dressing to bilat feet removed at this time. CLeaned with normal saline and reapplied. Noted to have several ulcers to both feet-see assessment. Plan of care discussed for this shift to include meds/pain control/calling for questions/concerns. Verbalizes understanding. Call light in reach. Will monitor.
[2022-08-02 11:01] VITALS: BP 123/70; PULSE 86; TEMP 97.6
--- NOTE | 2022-08-02 11:15 | NUR ---
Script Coordinator met with patient to discuss discharge planning. Patient was hospitalized here last week and SW if familiar with him. Patient does not have a permanent residence and stays with friends, which has been his living arrangement for years. Patient was discharged on 07/27/22 and provided with a medication voucher. Patient advised he picked up medications from [facility] and has his oral antibiotic with him. Patient reported that he has been taking it as prescribed. Patient had an appointment scheduled at the [facility] on 07/30/22, however it was cancelled due to weather. Patient believes his appointment was rescheduled for 08/14/22. Patient advised he continues to stay with friends. SW inquired about which friend he currently stays with and patient prefers not to say and does not want his friends involved in his care. Patient does not use any DME and stated he has been doing "fine" with ADLS, however has been walking slower due to swelling. Patient does not have DPOA-HC. SW encouraged patient to consider who he would want to make medical decisions on his behalf if he were unable. Patient stated he is not and has no children. Patient reports his parents live overseas and his sister, Herlinda lives in [place]. Patient advised he has no spoken to Herlinda in about 10 years and does not know her last name. Patient only speaks to his parents once a year, on his birthday. Patient will continue to stay with friends at time of discharge. Discharge Plan: Home with friends
--- NOTE | 2022-08-02 13:01 | NUR ---
Substation Engineer rounds: Substation Engineer visit attempted. RN with Patient. No functional director visit completed.
[2022-08-02 15:04] VITALS: BP 123/67; PULSE 100; TEMP 98.8
--- NOTE | 2022-08-02 16:26 | NUR ---
Patient c/o pain to back/feet-described as throbbing/burning-Morphine given per dr order.
[2022-08-02 19:39] VITALS: BP 106/68; PULSE 61; TEMP 99
[2022-08-02 23:04] VITALS: BP 122/67; PULSE 102; TEMP 99.2
[2022-08-03] VITALS (17 sets, daily range): BP systolic 103–169; BP diastolic 59–96; PULSE 83–129; TEMP 98.2–99.4
--- NOTE | 2022-08-03 00:02 | NUR ---
Patient assessed arund 1944. Denied pain and discomfort at this time. Did complain of pain around 2300, and given PRN Morphine as requested for pain to BLE. Patient using bedpan in bed. Dressings to bilateral feet CDI. Heel protectors in place. Has old healed ulcers on bottom, but small open parker as well. Continues on IV fluids and ABX per orders. Voices no questions, needs, or concerns at this time. In bed with call light within reach.
--- NOTE | 2022-08-03 05:40 | NUR ---
Patient used bedpan throughout the night. Patient picking as skin and throwing dry skin on floor. Denies pain and discomfort. Continues on IV fluids and ABX per orders. Voices no questions, needs, or concerns at this time. In bed with call light within reach.
[2022-08-03 06:30] LABS: BASO # 0.1 K/mm3 (0.0-0.2); BASO % 0.5 % (0.0-2.0); EOS # 0.4 K/mm3 (0.0-0.7); EOS % 3.8 % (0.0-4.0); GRAN # 6.8 K/mm3 (1.4-6.5); GRAN % 61.3 % (42.2-75.2); LYMPH # 2.5 K/mm3 (1.2-3.4); MEAN CELL VOLUME 97 fl (80.0-100.0); MEAN CORPUSCULAR HGB CONC 32 g/dl (33.0-37.0); MEAN PLATELET VOLUME 9.9 fl (7.4-10.4); MONO # 1.3 K/mm3 (0.1-0.6); PLATELET COUNT 423 K/mm3 (130-400); RED BLOOD COUNT 2.09 M/mm3 (4.20-5.60); REDCELL DISTRIBUTION WIDTH-CV 15.1 % (11.5-14.5)
[2022-08-03 06:34] LABS: HEMATOCRIT 20.2 % (42.0-52.0); HEMOGLOBIN 6.5 g/dl (13.5-18.0); MEAN CORPUSCULAR HEMOGLOBIN 31 pg (27-31)
[2022-08-03 06:55] LABS: C-REACTIVE PROTEIN 3.27 mg/dL (0.00-0.50); CALCIUM 7.6 mg/dL (8.4-10.2); CREATININE, serum 1.05 mg/dL (0.72-1.25); MAGNESIUM 1.4 mg/dL (1.6-2.6)
--- NOTE | 2022-08-03 07:09 | NUR ---
[facility] [place] [facility] Attempted to call Dr. Muller, no answer. Call placed to Dr. Praveen Steele. New order to hold Lovenox, type and screen, and 2 units of blood. Lovenox put on hold. Orders placed, and called lab and notified of lab and 2 units of blood. Day shift nurse notified.
--- NOTE | 2022-08-03 12:37 | NUR ---
Initial visit: Pt was resting and content. Stated he was trying to get some sleep and had no needs. Pt appreciated the visit. Chuck Splitter will follow up as needed.
--- NOTE | 2022-08-03 18:58 | NUR ---
PATIENT ALERT AND ORIENTED X4. IV TO LEFT FOREARM STARTED TO LEAK DURING THE START OF BLOOD ADMINISTRATION. NEW IV TO LEFT UPPER ARM AFTER MULTIPLE ATTEMPTS. 2 UNITS GIVEN. RECHECK AT 1900. IV ANTIBIOTICS. PATIENT REFUSED TO HAVE AN AMPUTATION, AND EGD.
[2022-08-03 19:21] LABS: HEMATOCRIT 29.9 % (42.0-52.0); HEMOGLOBIN 10.1 g/dl (13.5-18.0)
[2022-08-04 00:53] LABS: PARTIAL THROMBOPLASTIN TIME 35.3 SECONDS (26.0-37.0)
[2022-08-04 03:41] LABS: HEMOGLOBIN 10.5 g/dl (13.5-18.0)
[2022-08-04 03:42] LABS: HEMATOCRIT 31.1 % (42.0-52.0)
[2022-08-04 03:49] VITALS: BP 116/76; PULSE 114; TEMP 98
[2022-08-04 07:28] LABS: HEMOGLOBIN 10.2 g/dl (13.5-18.0); MEAN CORPUSCULAR HEMOGLOBIN 31 pg (27-31); MEAN CORPUSCULAR HGB CONC 34 g/dl (33.0-37.0); MEAN PLATELET VOLUME 10.1 fl (7.4-10.4); PLATELET COUNT 439 K/mm3 (130-400); RED BLOOD COUNT 3.32 M/mm3 (4.20-5.60); REDCELL DISTRIBUTION WIDTH-CV 15.4 % (11.5-14.5)
[2022-08-04 07:33] LABS: MEAN CELL VOLUME 90 fl (80.0-100.0)
[2022-08-04 07:46] LABS: CALCIUM 8.2 mg/dL (8.4-10.2); CREATININE, serum 1.01 mg/dL (0.72-1.25)
[2022-08-04 07:49] VITALS: BP 121/75; PULSE 110; TEMP 99.1
--- NOTE | 2022-08-04 08:23 | NUR ---
Consults called to Cards and Pulm at this time.
[2022-08-04 08:24] LABS: BAND 8 % (0-10); EOSINOPHIL 3 % (0-4); LYMPHOCYTE 14 % (20.0-51.0); NEUTROPHILS 63 % (42.0-75.2); PLATELET ESTIMATE INCREASED (NORMAL)
[2022-08-04 08:45] LABS: INR 1.2 (0.8-3.0); PROTHROMBIN TIME 13.7 SECONDS (9.7-12.8)
--- NOTE | 2022-08-04 09:06 | NUR ---
Heparin gtt held at this time per dr order.
[2022-08-04 11:37] VITALS: BP 120/77; PULSE 113; TEMP 100.8
--- NOTE | 2022-08-04 11:49 | NUR ---
SHIFT ASSESSMENT COMPLETE. PT SLEEPY BUT ALERT X4. TELEMENTRY ON SINUS TACHY HR @ 115BPM. LUNG SOUNDS PERIPHERIAL MIRZA TO BILAT. BASES NO SOA NOTED @REST. ABDOMEN SOFT, PT REPORTS TENDERNESS TO RUQ AND RLQ. COCCYX SKIN FIRM W/ RED AREAS, BARRIER CREAM ON. BLE TENDER TO TOUCH. RT FOOT BAND-AID CDI TO DORSAL SIDE OF FOOT. LEFT FOOT GUAZE INTACT;SKIN FLAKEY. HEEL PROTECTORS ON BILATERAL FEET. INT RT FOREARM INTACT, NO REDNESS. HEPRIN INFUSING PER PROTOCAL TO LFT AC PERIPHRIAL SITE. PT DECLINES NO NEEDS AT THIS TIME.
[2022-08-04 13:30] LABS: PLEURAL FLUID APPEARANCE CLEAR; PLEURAL FLUID COLOR YELLOW; PLEURAL FLUID RBC 0 /mm3 (0-0); PLEURAL FLUID WBC 456 /mm3
[2022-08-04 15:52] VITALS: BP 142/87; PULSE 127; TEMP 102.9
--- NOTE | 2022-08-04 15:57 | NUR ---
Notified Dr Muller of elevated temp of 102.2 and already received tylenol. New orders received and initiated.
[2022-08-04 18:07] VITALS: TEMP 99.4
--- NOTE | 2022-08-04 19:10 | NUR ---
Patient had an uneventful day. Did have a temp of 102.8 and received motrin/tylenol x1. Denies current needs. Call light in reach. Will monitor.
[2022-08-04 19:15] VITALS: BP 117/78; PULSE 114; TEMP 98.8
[2022-08-05] VITALS (13 sets, daily range): BP systolic 105–124; BP diastolic 65–88; PULSE 100–121; TEMP 98.3–101.3
[2022-08-05 06:35] LABS: MEAN CELL VOLUME 93 fl (80.0-100.0); MEAN CORPUSCULAR HGB CONC 33 g/dl (33.0-37.0); PLATELET COUNT 396 K/mm3 (130-400); RED BLOOD COUNT 3.08 M/mm3 (4.20-5.60); REDCELL DISTRIBUTION WIDTH-CV 15.3 % (11.5-14.5)
[2022-08-05 06:40] LABS: HEMATOCRIT 28.5 % (42.0-52.0); HEMOGLOBIN 9.4 g/dl (13.5-18.0); MEAN CORPUSCULAR HEMOGLOBIN 31 pg (27-31)
[2022-08-05 06:44] LABS: INR 1.2 (0.8-3.0); PROTHROMBIN TIME 13.5 SECONDS (9.7-12.8)
[2022-08-05 06:45] LABS: PARTIAL THROMBOPLASTIN TIME 34.9 SECONDS (26.0-37.0)
--- NOTE | 2022-08-05 07:47 | NUR ---
SHIFT ASSESSMENT COMPLETE. TELEMENTRY ON HR TACHY 112 BPM @ REST. LUNG SOUNDS DEMISHED IN ALL MIRZA, NO SOA. ABDOMEN FLAT AND SOFT. PT STATES TENDER ON RTUQ AND RTLQ WHEN PALPATED. INT TO LFT AC AND RT FOREARM, NO REDDNESS OR DRAINAGE. COCCYX SKIN FIRM W/REDNESS AND SOME TUNNELING WITH PUS, BARRIER CREAM ON AND DRESSING APPLIED. BLE TENDERNESS, LFT FOOT GAUZE DRESSING CDI, RT FOOT BAND-AID ON TOP OF THE FOOT. BL FEET DRY,CRACKED, AND FLAKEY. PT STATES PAIN 6/10 TO NECK AND REQUESTING TYLENOL, PRIMARY NURSE NOTIFIED. CALL LIGHT WITHIN REACH AND BED ALARM ON.
--- NOTE | 2022-08-05 08:30 | NUR ---
PT REPORTS NECK PAIN IMPROVING. AWAITING FOR PNEUMOTHORACENTESIS.
--- NOTE | 2022-08-05 08:45 | NUR ---
DR. BRIUZELA IN PT ROOM FOR THORACENTESIS, 650ML OF YELLOW FLUID OBTAINED AND TAKEN TO LAB.
--- NOTE | 2022-08-05 09:15 | NUR ---
VSS. PT ALERT/AWAKE. BAND-AID CDI TO POSTERIOR L CHEST WALL.
[2022-08-05 09:33] LABS: CALCIUM 7.9 mg/dL (8.4-10.2); CREATININE, serum 1.05 mg/dL (0.72-1.25); POTASSIUM 3.9 mmol/L (3.5-4.5)
[2022-08-05 09:37] LABS: PLEURAL FLUID RBC 0 /mm3 (0-0); PLEURAL FLUID WBC 549 /mm3
[2022-08-05 09:41] LABS: PLEURAL FLUID APPEARANCE HAZY; PLEURAL FLUID COLOR YELLOW
--- NOTE | 2022-08-05 15:23 | NUR ---
PATIENT DID WELL TODAY. THORACENTESIS 08/05 AT 0845 TO LEFT SIDE. 550ML PULLED BY DR. BRIZUELA. PATIENT DID NOT HAVE ANY REACTION OR NEGATIVE RESPONSE. VSS. PATIENT HAS NOT COMPLAINED OF PAIN. WOUND NURSE TEAM WAS CONSULTED AND THEY CHANGED THE BLE FEET DRESSINGS. SUPPLIES ARE WRITTEN IN WOUND CARE NOTE. NURSING CHANGED SACRAL DRESSING DUE TO INCREASED DRAINAGE FROM PILONIDAL CYSTS. PATIENT ALSO PICKS AT THE BOTTOM AND CAUSES IRRITATION. WILL CONTINUE TO MONITOR.
[2022-08-06 03:58] VITALS: BP 114/80; PULSE 94; TEMP 98.5
[2022-08-06 06:50] LABS: BASO # 0.1 K/mm3 (0.0-0.2); BASO % 0.7 % (0.0-2.0); EOS # 0.6 K/mm3 (0.0-0.7); EOS % 4.5 % (0.0-4.0); GRAN # 8.2 K/mm3 (1.4-6.5); GRAN % 67.3 % (42.2-75.2); LYMPH # 1.8 K/mm3 (1.2-3.4); LYMPH % 14.8 % (20.0-51.0); MEAN CELL VOLUME 94 fl (80.0-100.0); MEAN CORPUSCULAR HGB CONC 33 g/dl (33.0-37.0); MEAN PLATELET VOLUME 10.3 fl (7.4-10.4); MONO # 1.5 K/mm3 (0.1-0.6); PLATELET COUNT 406 K/mm3 (130-400); RED BLOOD COUNT 3.06 M/mm3 (4.20-5.60); REDCELL DISTRIBUTION WIDTH-CV 15.5 % (11.5-14.5)
[2022-08-06 06:57] LABS: HEMATOCRIT 28.6 % (42.0-52.0); HEMOGLOBIN 9.4 g/dl (13.5-18.0); MEAN CORPUSCULAR HEMOGLOBIN 31 pg (27-31)
[2022-08-06 07:12] LABS: CREATININE, serum 1.08 mg/dL (0.72-1.25); MAGNESIUM 2.1 mg/dL (1.6-2.6); POTASSIUM 3.7 mmol/L (3.5-4.5)
[2022-08-06 08:00] VITALS: BP 116/80; PULSE 93; TEMP 97.9
[2022-08-06 11:09] VITALS: BP 109/83; PULSE 91; TEMP 99.6
[2022-08-06 16:18] VITALS: BP 131/91; PULSE 125; TEMP 99.6
[2022-08-06 19:54] VITALS: BP 107/75; PULSE 112; TEMP 100.2; TEMP 99.4
[2022-08-06 23:16] VITALS: BP 104/64; PULSE 106; TEMP 99.3
[2022-08-07 03:18] VITALS: BP 94/63; PULSE 92; TEMP 98.7
[2022-08-07 06:49] LABS: HEMATOCRIT 29.1 % (42.0-52.0); HEMOGLOBIN 9.2 g/dl (13.5-18.0); MEAN CELL VOLUME 95 fl (80.0-100.0); MEAN CORPUSCULAR HEMOGLOBIN 30 pg (27-31); MEAN CORPUSCULAR HGB CONC 32 g/dl (33.0-37.0); MEAN PLATELET VOLUME 10.3 fl (7.4-10.4); PLATELET COUNT 356 K/mm3 (130-400); RED BLOOD COUNT 3.06 M/mm3 (4.20-5.60); REDCELL DISTRIBUTION WIDTH-CV 15.8 % (11.5-14.5)
[2022-08-07 07:06] LABS: CALCIUM 7.9 mg/dL (8.4-10.2); CREATININE, serum 1.19 mg/dL (0.72-1.25); POTASSIUM 4.4 mmol/L (3.5-4.5)
[2022-08-07 08:11] VITALS: BP 98/66; PULSE 96; TEMP 98.3
[2022-08-07] MEDS ORDERED: PROBIOTIC ACID1 EAC3 PO ×2 (09:22→16:16)
[2022-08-07] MEDS ORDERED: PROTONIX 40MG T40 MG PO ×2 (09:22→16:58)
[2022-08-07] MEDS ORDERED: VITAMIN C500 MG PO (09:23)
[2022-08-07] MEDS ORDERED: THIAMINE 1100 MG/TAB PO (09:23)
[2022-08-07] MEDS ORDERED: CENTRUM SILVER1 CTB PO (09:23)
[2022-08-07] MEDS ORDERED: DOXYCYCLINE 10100 MG PO ×2 (09:30→16:15)
[2022-08-07 11:14] VITALS: BP 89/61; PULSE 96; TEMP 98.3
[2022-08-07 14:42] LABS: CLOSTRIDIUM DIFF A/B NEG; CLOSTRIDIUM DIFF A/B INTERP No C.diff present
[2022-08-07] MEDS ORDERED: IMODIUM 2MG CAPS2 MG PO ×2 (15:32→16:16)
[2022-08-07 15:48] VITALS: BP 104/69; PULSE 106; TEMP 100
[2022-08-07] MEDS ORDERED: AMOXICILLIN 8751 TAB PO (16:13)
[2022-08-07] MEDS ORDERED: FERRO-TIME325 MG PO (16:16)
--- NOTE | 2022-08-07 16:31 | NUR ---
SW met with patient to discuss discharge plan. Patient reports that he has a ride but he has to be ready to go by 5pm. Patient provided a med voucher to [employer] for a total of $71.17. Educated patient that the voucher will on 08/09. Discharge plan: Home
--- NOTE | 2022-08-07 16:52 | NUR ---
STOOL SAMPLE RESULTED. VITAL SIGNS DISCUSSED WITH DR. JAIN. URIBE TO DISCHARGE PER PROVIDER.
--- NOTE | 2022-08-07 18:39 | NUR ---
Pt having multiple episodes of diarrhea throughout shift. probiotic and antidiarrheal given.
--- NOTE | 2022-08-07 19:09 | NUR ---
Pt discharged with belongings, picked up by friend. IV and telemetry removed. Educated on discharge instructions and new medications, going in great detail how to peanut picker medications, what was needed to peanut picker medications, and the appointments that had been scheduled for him and how to contact the offices if needing to reschedule. All wound dressings changed prior to discharge. Pt verbalized understanding. Wheeled to chair, safely transferred to car.
--- NOTE | 2022-08-12 11:16 | NUR ---
SW received VMS from patient that he has not been able to meat pickler his medications from the pharmacy yet. Phone call made to [facility] to verify this. They do still have the medications. SW and pharmacy in agreement to extend expiration graciela to 08/15. New voucher faxed. Phone call made to patient and message left that he is needing to get these medications NIK but i am giving him till Wednesday.
== END 2022-08-07 19:00 | disposition home or self-care (01) | DRG 871 ==
LOC: COL.ER 03:15 → MEDICAL 04:23
PROVIDERS: Family Medicine; Internal Medicine; Internal Medicine Pulmonary Disease; Physician Assistant; Student in an Organized Health Care Education/Training Program; ADMIT Internal Medicine
PROC: 0W9B3ZZ Drainage of Left Pleural Cavity, Percutaneous Approach (ICD-10-PCS; principal; 2022-08-05)
DX: A41.9 Sepsis, unspecified organism (principal); I21.A1 Myocardial infarction type 2; J18.9 Pneumonia, unspecified organism; I96 Gangrene, not elsewhere classified; J90 Pleural effusion, not elsewhere classified; F17.210 Nicotine dependence, cigarettes, uncomplicated; F10.10 Alcohol abuse, uncomplicated; D64.9 Anemia, unspecified; E83.42 Hypomagnesemia
CPT/HCPCS: J0696; J1644; J1650; J1940; J2270; J2543; J3475; J7030; J7120; P9016; Q9967